=== PATIENT | female | born 1965 | race Hispanic/Latino ===

== ENCOUNTER 2023-06-30 16:04 | Outpatient (CLI) | payer BC | END 2023-06-30 16:05 | disposition home or self-care (01) | LOC: CSHRAD 16:04 | PROVIDERS: ATTEND Physician Assistant Surgical | DX: M47.26 Other spondylosis with radiculopathy, lumbar region (principal); M43.16 Spondylolisthesis, lumbar region | CPT/HCPCS: 72110 ==